=== PATIENT | female | born 1970 | race Asian ===

== ENCOUNTER → 2018-12-12 | Outpatient (CLI) | payer OTHER ==
--- NOTE | 2018-12-16 14:06 | PATH ---
[address] [address] PATHOLOGY RPT PROCEDURE Name: JACE BOOGIE Room: [facility] YOLANDE Rivera#: [id number] Admission: 12/12/18 Date of : 74 Discharge: Report #: [id number] Path Case #: [id number] [facility] Accession Number: [id number] . 01 Material submitted: . thyroid gland - RIGHT THYROID BIOPSY. Modifiers: right . 01 Clinical history: . Thyroid nodule-right; 2.97 x 2.32 x 2.46 . 02 Diagnosis: Right thyroid nodule, image guided biopsy: - Isolated thyroid follicular cells, blood and abundant histiocytes compatible with benign adenomatoid nodule. See comment. (DANO:gordo 12/16/2018) QTP/12/16/2018 . 02 Comment: The corresponding cytology specimen shows cytologic features including follicular epithelial cellularity consistent with a benign adenomatoid nodule ([id number]). (DANO:pit 12/15/2018) . 02 Electronically signed: . Ismael Pop MD, Pathologist NPI- [id number] . 01 Gross description: . The specimen is received in CytoLyt, labeled "Jace Boogie, thyroid". The site is additionally labeled on the requisition as, "thyroid biopsy, right". Received is a segment of pink-lunsford soft material measuring 0.3 cm in maximum dimensions. The specimen is submitted entirely in cassette A1. (CAA; 12/12/2018) QAC/QAC . 02 Pathologist provided ICD-10: E04.1 . 02 CPT . 73736 Specimen Comment: A courtesy copy of this report has been sent to Specimen Comment: [phone]. Specimen Comment: Report sent to Performed at: [address] [id number] MD Ethan Martin MD Phone: [phone] Performed at: 02 [place] [address] PATHOLOGY RPT PROCEDURE Name: JACE BOOGIE [facility] [id number] Admission: 12/12/18 Date of : 74 Discharge: Report #: [id number] Path Case #: [id number] [address] [place], [place] [id number] MD Ismael Pop MD Phone: [phone]
--- NOTE | 2018-12-17 11:07 | PATH ---
[address] [address] PATHOLOGY RPT PROCEDURE Name: VIDHI MITCHELL Room: [facility]#: [id number] Admission: 12/12/18 Date of : 74 Discharge: Report #: [id number] Path Case #: [id number] Note [facility] Accession Number: [id number] TESTS RESULT FLAG UNITS REF RANGE LAB Clinician Provided Cytology Information No. of containers..01 Other (Miscellaneous) Source: RT THYROID DIAGNOSIS: RT THYROID NEGATIVE FOR MALIGNANT CELLS. BETHESDA CATEGORY II. SPECIMEN CONSISTS OF BENIGN FOLLICULAR CELLS WITH OCCASIONAL HURTHELOID FEATURES, HEMOSIDERIN-LADEN MACROPHAGES, COLLOID, AND BLOOD. THIS PATTERN IS CONSISTENT WITH AN ADENOMATOID NODULE. THIS INTERPRETATION INCLUDES EVALUATION OF A CELL BLOCK. Pathologist ICD10: 02 E04.1 Signed out by: 02 Ismael Pop MD, Pathologist NPI- [id number] Performed by: Elio Atwood, Board Certified Family Physician ([facility]) Gross description: 01 17ML, RED, CLOUDY /LCS FLAG LEGEND: L-Low Normal,H-High Normal,LL-Alert Low,HH-Alert High <-Panic Low,>-Panic High,A-Abnormal,AA-Critical Abnormal Performed at: [address] [place] [address] Ethan Martin MD, [address] [place] [phone] Ismael Pop MD, Specimen Comment: A courtesy copy of this report has been sent to Specimen Comment: [phone]. Specimen Comment: Report sent to Specimen Comment: A duplicate report has been generated due to demographic updates. Performed at: [address], [place], [place] [id number] MD Ethan Martin MD Phone: [phone]
== END | disposition home or self-care (01) ==
LOC: M.ULTRA 08:03
DX: E04.1 Nontoxic single thyroid nodule (principal)